=== PATIENT | female | born 1975 | race Hispanic/Latino ===

== ENCOUNTER 2023-01-02 12:12 | Emergency (ER) | payer SELFPAY ==
[2023-01-02] MEDS ORDERED: Ketorolac Tromethamine 30 MG/ML VIAL ONE (14:01)
[2023-01-02] MEDS ORDERED: Aspirin Chewable 81 MG TAB ONE (15:23)
[2023-01-02] MEDS ORDERED: Magnesium 2 GM/50 ML BAG (IN WATER) ONE (15:23)
[2023-01-02] MEDS ORDERED: Azithromycin 500 MG VIAL ONE (15:23)
[2023-01-02] MEDS ORDERED: methylPREDNISolone Sod Succ/PF 125 MG/2 ML VIAL ONE (15:23)
[2023-01-02] MEDS ORDERED: cefTRIAXone (ROCEPHIN) 1 GM VIAL ONE (15:23)
[2023-01-02] MEDS ORDERED: Nitroglycerin 2% Ointment 1 INCH/1 GM Packet ONE (15:23)
== END 2023-01-02 18:40 | disposition home or self-care (01) ==
LOC: ERS 12:12
DX: G56.02 Carpal tunnel syndrome, left upper limb (principal)
CPT/HCPCS: 96372; J0456; J0696; J1885; J2930; J3475

== ENCOUNTER 2024-09-23 14:45 | Emergency (ER) | payer SELFPAY ==
[2024-09-23 16:09] LABS: Bilirubin Negative (Negative); Blood, Urine Negative (Negative); CAUTI Indications for Culture Dysuria,urgency,freq; Clarity Clear (Clear); Glucose, Urine (Dipstick) Normal (Negative); Ketone, Urine Negative (Negative); Leukocyte 25 Leu/uL (Negative); Nitrite Negative (Negative); Protein, Urine (Dipstick) Negative (Neg-Trace); RBC/HPF 0-3 HPF (0-3); Specific Gravity, Urine 1.008 (1.002-1.036); Squamous Epithelial 0-3 HPF (0-3); Urobilinogen Normal mg/dL (Less than 2)
[2024-09-23 16:10] LABS: Bacteria/HPF 1+ HPF (None Seen); Urine Culture Reflex No No
== END 2024-09-23 16:25 | disposition home or self-care (01) ==
LOC: ERS 14:45
DX: N64.52 Nipple discharge (principal)
CPT/HCPCS: 81001; 99283